=== PATIENT | male | born 1980 | race African-American/Black ===

== ENCOUNTER 2017-07-26 18:17 | Emergency (ER) | payer OTHER ==
[2017-07-26] MEDS ORDERED: NS 0.9% 1000 ML* 1,000 ML IV ONE ×2 (18:20→19:46)
[2017-07-26] MEDS ORDERED: LORazepam INJ* 2 MG/ML 1 ML VIAL IV PUSH ONE (18:20)
--- OUTSIDE RECORDS SUMMARY | 2017-07-26 18:28 | XMS REPORT ---
:1980 External Reference #:[id number] Author Organization [employer] Address [address] [facility] [address] [place] [address] Phone [phone] Care Team Providers Name Role Phone Humberto Villa MD Primary Care Physician Unavailable Payers Type Date Identification Numbers Payment Provider Subscriber Commercial Policy Number: [id number] Gregg Ho [place] [employer] Number: [id number] [address] PayID: [id number] [place] [address] Problems Date Description Provider Status Onset: 05/20/2017 Candidiasis Humberto Villa M.D. Active Onset: 05/20/2017 Tobacco user Humberto Villa M.D. Active Onset: 11/05/2016 Insomnia Humberto Villa M.D. Active Onset: 11/05/2016 Gastroesophageal reflux disease Humberto Villa M.D. Active Onset: 11/05/2016 Hemorrhoids without complication Humberto Villa M.D. Active Social History Type Date Description Comments Marital Status Single Lives With Grandmother Occupation Unemployed Cigarette Use Patient is a current cigarette smoker, smokes every day ETOH Use Consumed liquor 7 times per week in the past Smoking Patient is a current smoker, Light smoker-5-6 cigarettes smokes every day a day Recreational Drug Use Former Drug User Smoking Light tobacco smoker (10 or fewer cigarettes/day) General Hx Text Allergies, Adverse Reactions, Alerts Date Description Reaction Status Severity Comments 01/08/2015 NKDA active Medications Medication Date Status Form Strength Qnty SIG Indications Ordering Provider Omeprazole 06/[address] 20mg 30cap 1 by mouth K21.9 s every day 1 Pachikara hour before , MJonelDJonel breakfast Hydroxyzine HCL 05/20 Active Tablets 25mg 60tab 1-2 tablets G47.00 s by mouth hs Catrachita Villa Clotrimazole 05/20 Active Cream 1% 90gm apply twice B37.9 daily Catrachita Villa Trazodone HCL Active Tablets 50mg 30tab 1 tablet at s bedtime as Allen needed Catrachita Proctosol HC 06/07 Hx Cream 2.5% 28.35 apply 0gm before and Pachikara after Catrachita phillips Anusol-HC 05/20 Hx Suppository 25mg 12uni once daily K64.8 ts after bm Catrachita Villa Anucort-HC 11/05 Hx Suppository 25mg 12uni apply daily K64.9 ts after first Pachika - Catrachita phillips 11/05 Proctosol HC 11/05 Hx Cream 2.5% 28.35 apply 0gm before and Pachikara after Catrachita phillips Omeprazole 08/[address] 20mg 30cap 1 by mouth K21.9 s once daily Catrachita Villa Hydrocortisone 03/17 Hx Suppository 30mg 48uni 1 supposity K62.5 ts per rectom ROBERTO Wiggins - twice per 11/05 day needed for bleeding hemorroids Bupropion HCL 02/10 Hx Tablets ER 200mg 60tab take 1 F33.2 Edenilson ER (SR) 12HR s tablet by ROBERTO Wiggins - mouth in 11/05 the and at dinner. Wellbutrin SR 01/22 Hx Tablets ER 150mg 60tab take 1 F33.2 12HR s tablet by ROBERTO Wiggins - mouth in 02/10 the and at noon. Start with just one tab for first 3 days. Cipro 10/30 Hx Tablets 500mg 14tab 1 tab by D72.829 s mouth twice ROBERTO Wiggins - a day 7 Proair HFA 01/10 Hx Aerosol 108(90Bas 1unit inhale 2 D72.829 e) s puffs by ROBERTO Wiggins - mcg/Act mouth every 11/05 4 hours as needed Ketoconazole 01/08 Hx Cream 2% 1unit apply once B35.3 s daily to ROBERTO Wiggins - affected 11/05 areas x two weeks. Nicorette 01/08 Hx Lozenges 2mg 81uni use 1 F17.210 ts lozenger by ROBERTO Wiggins - mouth as 01/08 needed for craving may use one every 15 min Erythromycin 01/08 Hx Ointment 5mg/GM 1unit 1/2 inch to H10.33 s each eye 4 Rosalie [employer] - times daily 02/10 until redness is gone. Nicorette 01/08 Hx Lozenges 4mg 81uni 1 lozenger F17.210 ts every 1/2 Rosalie [employer]EL[employer] - hour as 02/10 needed for cravings Medications Administered in Office Medication Date Status Form Strength Qnty SIG Indications Ordering Provider PPD Administered Injection Ke Nelson [employer] PPD Administered Injection Nurse Visit 6 C Vital Signs Date Vital Result Comment 06/27/2017 Height 67 inches 5'7" Weight 200.00 lb BP Systolic 72 mmHg BP Systolic Sitting 160 mmHg BP Diastolic Sitting 90 mmHg Respiratory Rate 18 /min Body Temperature 97.7 F BMI (Body Mass Index) 31.3 kg/m2 06/23/2017 Weight 200.00 lb Heart Rate 81 /min BP Systolic 124 mmHg BP Diastolic 70 mmHg Body Temperature 97.7 F O2 % BldC Oximetry 96 % 05/20/2017 Height 67 inches 5'7" Weight 193.50 lb Heart Rate 74 /min BP Systolic Sitting 120 mmHg BP Diastolic Sitting 72 mmHg O2 % BldC Oximetry 97 % BMI (Body Mass Index) 30.3 kg/m2 11/05/2016 Height 67 inches 5'7" Weight 193.00 lb Heart Rate 91 /min BP Systolic 142 mmHg BP Diastolic 86 mmHg Body Temperature 97.7 F O2 % BldC Oximetry 96 % BMI (Body Mass Index) 30.2 kg/m2 08/04/2015 Height 67 inches 5'7" Weight 207.00 lb Heart Rate 90 /min BP Systolic Sitting 128 mmHg BP Diastolic Sitting 84 mmHg Respiratory Rate 15 /min Body Temperature 98.0 F O2 % BldC Oximetry 98 % BMI (Body Mass Index) 32.4 kg/m2 03/17/2015 Height 67 inches 5'7" Weight 206.00 lb Heart Rate 81 /min BP Systolic 128 mmHg BP Diastolic 78 mmHg Body Temperature 98.0 F O2 % BldC Oximetry 97 % BMI (Body Mass Index) 32.3 kg/m2 02/10/2015 Weight 209.00 lb Heart Rate 88 /min BP Systolic Sitting 131 mmHg BP Diastolic Sitting 79 mmHg Body Temperature 97.9 F 01/22/2015 Height 67 inches 5'7" Weight 197.00 lb Heart Rate 72 /min BP Systolic 110 mmHg BP Diastolic 78 mmHg Body Temperature 98.2 F O2 % BldC Oximetry 98 % BMI (Body Mass Index) 30.9 kg/m2 01/10/2015 Weight 199.00 lb Heart Rate 97 /min BP Systolic Sitting 134 mmHg BP Diastolic Sitting 78 mmHg Body Temperature 97.4 F 01/08/2015 Height 67 inches 5'7" Weight 200.00 lb Heart Rate 100 /min BP Systolic 110 mmHg BP Diastolic 68 mmHg Body Temperature 98.7 F O2 % BldC Oximetry 98 % BMI (Body Mass Index) 31.3 kg/m2 Results Test Date Test Result H/L Range Note CBC Auto Diff 03/17/2015 White Blood Count 12.3 10^3/uL High 3.5-10.8 Red Blood Count 5.63 10^6/uL High 4.0-5.4 Hemoglobin 15.3 g/dL 14.0-18.0 Hematocrit 44 % 42-52 Mean Corpuscular Volume 79 fL Low 80-94 Mean Corpuscular Hemoglobin 27 pg 27-31 Mean Corpuscular HGB Conc 35 g/dL 31-36 Red Cell Distribution Width 14 % 10.5-15 Platelet Count 243 10^3/uL 150-450 Mean Platelet Volume 9 um3 7.4-10.4 Abs Neutrophils 7.7 10^3/uL 1.5-7.7 Abs Lymphocytes 3.3 10^3/uL 1.0-4.8 Abs Monocytes 0.9 10^3/uL High 0-0.8 Abs Eosinophils 0.3 10^3/uL 0-0.6 Abs Basophils 0.1 10^3/uL 0-0.2 Abs Nucleated RBC 0.02 10^3/uL Granulocyte % 62.5 % 38-83 Lymphocyte % 27.1 % 25-47 Monocyte % 7.3 % 1-9 Eosinophil % 2.6 % 0-6 Basophil % 0.5 % 0-2 Nucleated Red Blood Cells % 0.1 Laboratory test finding 03/17/2015 Alt (SGPT) 21 U/L 7-52 Syphilis Screen 03/17/2015 Pediatric/Maternal NO Syphilis IgG Nonreactive Nonreactive 1 RPR TNP Nonreactive RPR Titer TNP Urinalysis Profile 03/17/2015 Urine Color Yellow Urine Appearance Cloudy Urine Specific Aubrey 1.021 1.010-1.030 Urine pH 5.0 5-9 Urine Urobilinogen Negative Negative Urine Ketones Negative Negative Urine Protein Negative Negative Urine Leukocytes Negative Negative Urine Blood Negative Negative Urine Nitrite Negative Negative Urine Bilirubin Negative Negative Urine Glucose Negative Negative Ua Routine 03/17/2015 Ua Specific Aubrey 1.015 Ua PH 6 Ua Color yellow Ua Appera clear Ua WBC negative Ua Protein negative Ua Glucose normal Ua Ketones negative Ua Bilirubin negative Ua Urobilinogen normal Ua Nitrite negative Ua Occult Blood negative Laboratory test 01/12/2015 Alcohol 95 mg/dL High <10 finding Urine Drug SCR ED 01/12/2015 Amphetamine Ur None Detected None Detect & Pain Clinic Screen Barbiturates Urine Screen None Detected None Detect Benzodiazepine Urine Screen None Detected None Detect Urine Cannabinoids Screen None Detected None Detect Urine Cocaine Screen None Detected None Detect Urine Opiates Screen None Detected None Detect Urine Phencyclidine Screen None Detected None Detect 2 CBC Auto Diff 01/10/2015 White Blood Count 16.7 10^3/uL High 4.8-10.8 Red Blood Count 5.44 10^6/uL High 4.0-5.4 Hemoglobin 15.1 g/dL 14.0-18.0 Hematocrit 43 % 42-52 Mean Corpuscular Volume 79 fL Low 80-94 Mean Corpuscular Hemoglobin 28 pg 27-31 Mean Corpuscular HGB Conc 35 g/dL 31-36 Red Cell Distribution Width 14 % 10.5-15 Platelet Count 300 10^3/uL 150-450 Mean Platelet Volume 8 um3 7.4-10.4 Abs Neutrophils 9.9 10^3/uL High 1.5-7.7 Abs Lymphocytes 4.7 10^3/uL 1.0-4.8 Abs Monocytes 1.4 10^3/uL High 0-0.8 Abs Eosinophils 0.6 10^3/uL 0-0.6 Abs Basophils 0.1 10^3/uL 0-0.2 Abs Nucleated RBC 0.02 10^3/uL Granulocyte % 59.5 % 38-83 Lymphocyte % 28.0 % 25-47 Monocyte % 8.3 % 1-9 Eosinophil % 3.7 % 0-6 Basophil % 0.5 % 0-2 Nucleated Red Blood Cells % 0.1 Laboratory test finding 01/10/2015 Erythrocyte Sed Rate 15 mm/Hr High 0- 14 CBC Auto Diff 01/08/2015 White Blood Count 19.9 10^3/uL High 4.8-10.8 Red Blood Count 5.02 10^6/uL 4.0-5.4 Hemoglobin 13.7 g/dL Low 14.0-18.0 Hematocrit 40 % Low 42-52 Mean Corpuscular Volume 80 fL 80-94 Mean Corpuscular Hemoglobin 27 pg 27-31 Mean Corpuscular HGB Conc 34 g/dL 31-36 Red Cell Distribution Width 14 % 10.5-15 Platelet Count 257 10^3/uL 150-450 Mean Platelet Volume 8 um3 7.4-10.4 Abs Neutrophils 14.8 10^3/uL High 1.5-7.7 Abs Lymphocytes 3.2 10^3/uL 1.0-4.8 Abs Monocytes 1.4 10^3/uL High 0-0.8 Abs Eosinophils 0.3 10^3/uL 0-0.6 Abs Basophils 0.1 10^3/uL 0-0.2 Abs Nucleated RBC 0 10^3/uL Granulocyte % 74.5 % 38-83 Lymphocyte % 16.3 % Low 25-47 Monocyte % 7.3 % 1-9 Eosinophil % 1.3 % 0-6 Basophil % 0.6 % 0-2 Nucleated Red Blood Cells % 0 Comp Metabolic Panel 01/08/2015 Sodium 135 mmol/L 133-145 Potassium 3.8 mmol/L 3.5-5.0 Chloride 103 mmol/L 101-111 Co2 Carbon Dioxide 27 mmol/L 22-32 Anion Gap 5 mmol/L 2-11 Glucose 97 mg/dL 70-100 Blood Urea Nitrogen 15 mg/dL 6-24 Creatinine 0.89 mg/dL 0.67-1.17 BUN/Creatinine Ratio 16.9 8-20 Calcium 9.4 mg/dL 8.6-10.3 Total Protein 6.9 g/dL 6.4-8.9 Albumin 4.2 g/dL 3.2-5.2 Globulin 2.7 g/dL 2-4 Albumin/Globulin Ratio 1.6 1-3 Total Bilirubin 0.50 mg/dL 0.2-1.0 Alkaline Phosphatase 62 U/L 34-104 Alt 39 U/L 7-52 Ast 53 U/L High 13-39 Egfr Non- 97.8 >60 Egfr 125.8 >60 3 1 Warning: A positive result is not useful for establishing a diagnosis of syphilis. In most situations, such a result may reflect a prior treated infection; a negative result can exclude a diagnosis of syphilis except for incubating or early primary disease. 2 The urine specimen was tested at the listed cutoffs: Drug class test level (ng/mL) Amphetamines 500 Barbituates 200 Benzodiazepine metabolites 200 Cocaine metabolites 150 Cannabinoids 50 Opiates 300 Pcp 25 This is a screening procedure. Positive results are not confirmed. Specimen was received without chain of custody. Results should be used for medical purposes only. 3 Because ethnic data is not always readily available, this report includes an eGFR for both -Americans and non- Americans. The National Kidney Disease Education Program (NKDEP) does not endorse the use of the MDRD equation for patients that are not between the ages of 18 and 70, are , have extremes of body size, muscle mass, or nutritional status, or are non- or non-. According to the National Kidney Foundation, irrespective of diagnosis, the stage of the disease is based on the level of kidney function: Stage Description GFR(mL/min/1.73 m(2)) 1 Kidney damage with normal or decreased GFR 90 2 Kidney damage with mild decrease in GFR 60-89 3 Moderate decrease in GFR 30-59 4 Severe decrease in GFR 15-29 5 Kidney failure <15 (or dialysis) Procedures Date CPT Code Description Status 06/27/2017 11233 Anoscopy Completed Encounters Type Date Location Provider CPT E/M Dx Office Visit 05/20/2017 [facility] Humberto Villa, [address] F17.210 9:00a [facility] - [place] [address] Domínguez G47.00 B37.9 K64.8 Office Visit 11/05/2016 8:00a [facility] Humberto Villa M.D. [address] K64.9 Medicine - [address] K21.9 G47.00 Office Visit 08/04/2015 1:40p [facility] Medicine - Leonid Ramsay, ROBERTO [address] K21.[address] [place] Office Visit 03/17/2015 2:40p [facility] Medicine - Edenilson Wiggins, [employer]OPER [address] K62.5 [place] F10.14 K64.0 Office Visit 02/10/2015 1:30p [facility] Medicine - [place] Wiggins, ROBERTO [address] F33.2 [place] Office Visit 01/22/2015 9:00a [facility] - Edenilson Wiggins, [employer] DEVELOPER [address] F33.2 [place] Office Visit 01/10/2015 2:00p [facility] - Edenilson Wiggins, [employer] DEVELOPER [address] D72.829 [place] Office Visit 01/08/2015 1:00p [facility] - Edenilson Wiggins, [employer] DEVELOPER [address] J06.9 [place] K62.5 B35.3 F17.210 H10.33 Plan of Care Future Appointment(s):08/15/2017 8:40 am - Humberto Villa M.D. at [facility] - [address]/27/2017 - Jeffery Luna MDK62.89 Other specified diseases of anus and rectumFollow up:As neededInstructions:anal hygiene according to handout Call for appointment in 6 months if no better, and we will perform an examination in the operating room
--- NOTE | 2017-07-26 18:47 | ED ---
Michael Whaley Gabriel, scribed for Jeffrey Colunga MD on 07/26/17 at 1828 . Substance Abuse/Use - HPI Summary HPI Summary: This patient is a 36 year old M presenting to [facility] after being found by the police rolling in the grass. Patient reports SOB. Patient denies HUFFMAN and CP. The patient is mildly arousalable. He states he cannot remember most of the day and that he smoked K2. He is acting bizzare and his clothes are covered in grass stains. - History Of Current Complaint Stated Complaint: OVERDOSE Time Seen by Provider: 07/26/17 18:19 Hx Obtained From: Patient, Other: - police Overdose Characteristics: Inhalation Timing Of Abuse: Binge Use Severity Initially: Moderate Severity Currently: Moderate Character: Stuporous Associated Signs And Symptoms: Other: - SOB - Allergies/Home Medications Allergies/Adverse Reactions: Allergies Allergy/AdvReac Type Severity Reaction Status Date / Time No Known Allergies Allergy Verified 12/08/12 16:32 PMH/Surg Hx/FS Hx/Imm Hx Endocrine/Hematology History: Denies: Hx Anticoagulant Therapy, Hx Diabetes, Hx Thyroid Disease Cardiovascular History: Denies: Hx Hypertension Respiratory History: Denies: Hx Asthma, Hx Chronic Obstructive Pulmonary Disease (COPD) Psychiatric History: Denies: Hx Substance Abuse - Immunization History Date of Tetanus Vaccine: unknown Date of Influenza Vaccine: unknown Infectious Disease History: Denies: Hx Hepatitis - Family History Known Family History: Negative: Seizure Disorder - Social History Lives: With Family Alcohol Use: Weekly Substance Use Type: Reports: Heroin, Marijuana Smoking Status (MU): Current Every Day Smoker Review of Systems Negative: Chest Pain Positive: Shortness Of Breath Negative: Headache All Other Systems Reviewed And Are Negative: Yes Physical Exam - Summary Physical Exam Summary: Appearance:, no pain distress, drowsy, no signs of injury Skin: warm, dry, reflects adequate perfusion Head/face: normal Eyes: EOMI, ALYSSA, pupils are dilated ENT: normal Neck: supple, non-tender Respiratory: CTA, breath sounds present Cardiovascular: tachy, pulses symmetrical Abdomen: non-tender, soft Bowel Sounds: present Musculoskeletal: normal, strength/ROM intact Neuro: normal, sensory motor intact, A&Ox3 Triage Information Reviewed: Yes Vital Signs On Initial Exam: Initial Vitals Temp Pulse Resp BP Pulse Ox 100.9 F 104 18 137/89 94 07/26/17 18:20 07/26/17 18:20 07/26/17 18:20 07/26/17 18:20 07/26/17 18:20 Vital Signs Reviewed: Yes Diagnostics - Vital Signs Vital Signs Temp Pulse Resp BP Pulse Ox 07/26/17 18:20 100.9 F 104 18 137/89 94 - Laboratory Lab Statement: Any lab studies that have been ordered have been reviewed, and results considered in the medical decision making process. Course/Dx - Course Assessment/Plan: Pt is stable he is not agitated. PA will monitor and disposition the patient. As needed Ativan order has been given to nursing for agitation. He has not required it as he presently is a little bit more sedate. - Diagnoses Provider Diagnoses: Drug use Discharge - Sign-Out/Discharge Documenting (check all that apply): Sign-Out Patient Signing out patient TO: Amy Shoemaker - Discharge Plan Condition: Guarded Referrals: Edenilson Wiggins RADIO PERFORMER [Primary Care Provider] - - Billing Disposition and Condition Condition: GUARDED The documentation as recorded by the Michael arana Gabriel accurately reflects the service I personally performed and the decisions made by me, Jeffrey Colunga MD.
[2017-07-26 19:02] LABS: ABS Basophils 0.1 10^3/ul (0-0.2); ABS Eosinophils 0.4 10^3/ul (0-0.6); ABS Monocytes 1.3 10^3/ul (0-0.8); ABS Neutrophils 10.6 10^3/ul (1.5-7.7); ABS Nucleated RBC 0 10^3/ul; Eosinophil % 2.8 % (0-6); Hematocrit 41 % (42-52); Hemoglobin 14.8 g/dl (14.0-18.0); Lymphocyte % 19.4 % (25-47); Mean Corpuscular HGB Conc 36 g/dl (31-36); Mean Corpuscular Hemoglobin 27 pg (27-31); Mean Corpuscular Volume 77 fL (80-94); Mean Platelet Volume 8.5 um3 (7.4-10.4); Nucleated Red Blood Cells % 0; Platelet Count 240 10^3/ul (150-450); Red Blood Count 5.38 10^6/ul (4.0-5.4); Red Cell Distribution Width 14 % (10.5-15); White Blood Count 15.4 10^3/ul (3.5-10.8)
[2017-07-26 19:11] LABS: INR 0.89 (0.77-1.02)
--- NOTE | 2017-07-26 19:13 | ED ---
Progress - Progress Note Progress Note: Patient signed out by Dr. Colunga pending labs and observation. Labs wbc 15. Creatinine kinase is only double. INR any DPT are normal. Creatinine is only a little bit elevated. Gave fluids and observed for 3 hours the patient is not agitated. Patient feels that want to go home. Denies any chest pain or shortness of breath. Discussed with girlfriend signs return to ED for. Patient 's girlfriend Understands agrees with plan. patient able to walk out of ED. - Results/Orders Results/Orders: Laboratory Results - last 24 hr 07/26/17 07/26/17 07/26/17 18:48 18:48 18:49 WBC 15.4 H RBC 5.38 Hgb 14.8 Hct 41 L MCV 77 L MCH 27 MCHC 36 RDW 14 Plt Count 240 MPV 8.5 Neut % (Auto) 68.5 Lymph % (Auto) 19.4 L Ellis % (Auto) 8.7 H Eos % (Auto) 2.8 Baso % (Auto) 0.6 Absolute Neuts (auto) 10.6 H Absolute Lymphs (auto) 3.0 Absolute Monos (auto) 1.3 H Absolute Eos (auto) 0.4 Absolute Basos (auto) 0.1 Absolute Nucleated RBC 0 Nucleated RBC % 0 INR (Anticoag Therapy) 0.89 APTT 27.4 Sodium 139 Potassium 3.6 Chloride 105 Carbon Dioxide 26 Anion Gap 8 BUN 18 Creatinine 1.18 H Est GFR ( Amer) 89.8 Est GFR (Non-Af Amer) 69.8 BUN/Creatinine Ratio 15.3 Glucose 141 H Calcium 9.6 Total Bilirubin 0.50 AST 43 H ALT 28 Alkaline Phosphatase 47 Total Creatine Kinase 668 H Total Protein 7.3 Albumin 4.2 Globulin 3.1 Albumin/Globulin Ratio 1.4 Serum Alcohol < 10 Re-Evaluation - Re-Evaluation First Eval Re-Evaluation Time: 20:10 Change: Improved Comment: patient is alert, has abrasion above knees that are complaining hurt. nontender patella or fibula head, full ROM knees Second Eval Re-Evaluation Time: 21:43 Change: Improved Comment: not agitation, no chest pain, no compliants, wants to go home Course/Dx - Diagnoses Provider Diagnoses: Drug use Discharge - Sign-Out/Discharge Documenting (check all that apply): Receiving Sign-Out Receiving patient FROM: Jeffrey Colunga - Discharge Plan Condition: Stable Disposition: HOME Patient Education Materials: Cannabis Abuse (ED) Referrals: Edenilson Wiggins NP [Primary Care Provider] - Additional Instructions: Follow up with primary within 3 days Return to ED if develop chest pain, agitation, or any new or worsening symptoms - Billing Disposition and Condition Condition: STABLE Disposition: HOME
[2017-07-26 19:20] LABS: EGFR Non-African American 69.8 (>60)
--- NOTE | 2017-07-26 19:34 | RAD ---
INDICATION: Trouble breathing. Drug ingestion COMPARISON: January 10, 2015 TECHNIQUE: An AP portable view obtained at 1902 hours is submitted. FINDINGS: Bones/Soft Tissues: There are no acute bony findings. Cardiomediastinal: The cardiomediastinal silhouette is normal. Lungs: There is mild interstitial prominence but there is no focal consolidation. Pleura: There are no pleural effusions. Other: None IMPRESSION: NO DEFINITIVE INFILTRATES. SUGGEST FOLLOW-UP PA AND LATERAL VIEWS IF THERE ARE PERSISTENT CHEST COMPLAINTS
[2017-07-26 22:13] VITALS: BP 99/67
== END 2017-07-26 22:15 | disposition home or self-care (01) ==
LOC: ED 18:17
DX: F19.90 Other psychoactive substance use, unspecified, uncomplicated (principal); F17.200 Nicotine dependence, unspecified, uncomplicated
CPT/HCPCS: 36415; 71045; 80053; 80320; 82550; 85025; 85610; 85730; 93005; 96361; 96374; 99284; G0480; J2060

== ENCOUNTER → 2017-12-02 14:40 | Emergency (ER) | payer SELFPAY ==
[~2017-12-02 14:40] MED LIST: LORazepam INJ* 2 MG/ML 1 ML VIAL IV PUSH ONE; NS 0.9% 1000 ML* 2,000 ML IV ONE; Ondansetron INJ* 2 MG/ML VIAL IV ONE
--- NOTE | 2017-12-02 16:44 | ED ---
GI/ HPI - HPI Summary HPI Summary: A 37 y/o M presents to ED with c/o N/V/D onset today. He denies fevers, diaphoresis, chills. He hasnt eaten today, last ate last night. PCP is Dr. Pike. Doesn't think hes been around anyone sick recently. - History of Current Complaint Chief Complaint: EDNauseaVomitDiarrh Time Seen by Provider: 12/02/17 15:24 Stated Complaint: WEAKNESS Hx Obtained From: Patient Onset/Duration: Started Hours Ago, Atraumatic, Still Present Timing: Constant Pain Intensity: 0 - out of 10 Associated Signs and Symptoms: Positive: Nausea, Vomiting, Diarrhea. Negative: Diaphoresis, Fever, Chills - Allergy/Home Medications Allergies/Adverse Reactions: Allergies Allergy/AdvReac Type Severity Reaction Status Date / Time No Known Allergies Allergy Verified 12/08/12 16:32 PMH/Surg Hx/FS Hx/Imm Hx Previously Healthy: Yes Endocrine/Hematology History: Denies: Hx Anticoagulant Therapy, Hx Diabetes, Hx Thyroid Disease Cardiovascular History: Denies: Hx Hypertension Respiratory History: Denies: Hx Asthma, Hx Chronic Obstructive Pulmonary Disease (COPD) Psychiatric History: Denies: Hx Substance Abuse - Immunization History Date of Tetanus Vaccine: unknown Date of Influenza Vaccine: unknown Immunizations Up to Date: Yes Infectious Disease History: No Infectious Disease History: Denies: Hx Hepatitis, Traveled Outside the [place] in Last 30 Days - Family History Known Family History: Negative: Seizure Disorder - Social History Occupation: Unemployed Lives: Alone Alcohol Use: Weekly Substance Use Type: Reports: Heroin, Marijuana, Synthetic Drugs Smoking Status (MU): Current Every Day Smoker Review of Systems Negative: Fever, Chills Negative: Erythema Negative: Sore Throat Negative: Chest Pain Negative: Shortness Of Breath, Cough Positive: Vomiting, Diarrhea, Nausea. Negative: Abdominal Pain Negative: dysuria, hematuria Negative: Myalgia, Edema Negative: Rash Negative: Numbness Psychological: Other - neg: dizziness All Other Systems Reviewed And Are Negative: Yes Physical Exam - Summary Physical Exam Summary: Constitutional: Well-developed, Well-nourished, Alert. (-) Distressed. Mildly tremulous. Skin: Warm, Dry HENT: Normocephalic; Atraumatic Eyes: Conjunctiva normal Neck: Musculoskeletal ROM normal neck. (-) JVD, (-) Stridor, (-) Tracheal deviation Cardio: Rhythm regular, rate normal, Heart sounds normal; Intact distal pulses; The pedal pulses are 2+ and symmetric. Radial pulses are 2+ and symmetric. (-) Murmur Pulmonary/Chest wall: Effort normal. (-) Respiratory distress, (-) Wheezes, (-) Rales Abd: Soft, (-) epigastric tenderness, (-) Distension, (-) Guarding, (-) Rebound Musculoskeletal: (-) Edema. Mildly tremulous. Lymph: (-) Cervical adenopathy Neuro: Alert, Oriented x3 Psych: Mood and affect Normal Triage Information Reviewed: Yes Vital Signs On Initial Exam: Initial Vitals Temp Pulse Resp BP Pulse Ox 97.3 F 91 17 138/83 99 12/02/17 14:42 12/02/17 14:42 12/02/17 14:42 12/02/17 14:42 12/02/17 14:42 Vital Signs Reviewed: Yes Diagnostics - Vital Signs Vital Signs Temp Pulse Resp BP Pulse Ox 12/02/17 15:17 73 13 137/74 97 12/02/17 14:42 97.3 F 91 17 138/83 99 - Laboratory Lab Statement: Any lab studies that have been ordered have been reviewed, and results considered in the medical decision making process. GIGU Course/Dx - Course Course Of Treatment: Pt eloped, left without discussion of risks. - Diagnoses Provider Diagnoses: Vomiting Discharge - Sign-Out/Discharge Documenting (check all that apply): Patient Departure - elopment - Discharge Plan Condition: Good Disposition: HOME Referrals: Edenilson Wiggins LICENSED OPTICAL DISPENSER [Primary Care Provider] - - Billing Disposition and Condition Condition: GOOD Disposition: Home - Attestation Statements Document Initiated by Scribe: Yes Documenting Scribe: Hal Mills Provider For Whom Scribe is Documenting (Include Credential): Dr. Kyle Patricia MD Scribe Attestation: Hal Whaley scribed for Dr. Kyle Patricia MD on 12/08/17 at 1057. Scribe Documentation Reviewed: Yes Provider Attestation: The documentation as recorded by the Hal arana accurately reflects the service I personally performed and the decisions made by , Dr. Kyle Patricia MD
[2017-12-02 17:00] VITALS: BP 141/87
== END | disposition home or self-care (01) ==
LOC: ED 14:40
DX: R11.2 Nausea with vomiting, unspecified (principal); R19.7 Diarrhea, unspecified
CPT/HCPCS: 99283

== ENCOUNTER 2018-08-14 11:19 | Emergency (ER) | payer OTHER ==
[2018-08-14 11:53] VITALS: BP 128/77
--- NOTE | 2018-08-14 13:14 | UC ---
Rectal Pain HPI - HPI Summary HPI Summary: 37-year-old male present with complaints of painful hemorrhoid since yesterday. States he has had issues with hemorrhoids in the past that have been well managed with hydrocortisone suppositories. Reports he noticed large, tender, swollen hemorrhoid yesterday that worsened throughout the night. Has noticed some bright red blood with wiping. Just prior to evaluation he went to the bathroom and states the hemorrhoid ruptured and pain has improved. Denies fever , chills, abdominal pain, nausea, vomiting, diarrhea, constipation, or melena. - History Of Current Complaint Chief Complaint: UCGU Stated Complaint: HEMROIDS Time Seen by Provider: 08/14/18 13:03 Hx Obtained From: Patient Pain Intensity: 8 - Allergies/Home Medications Allergies/Adverse Reactions: Allergies Allergy/AdvReac Type Severity Reaction Status Date / Time No Known Allergies Allergy Verified 08/14/18 11:53 PMH/Surg Hx/FS Hx/Imm Hx Previously Healthy: Yes - Denies significant PMH Cancer History: Other - Substance use/abuse Other History Of: Negative For: Anticoagulant Therapy - Surgical History Surgical History: None - Family History Known Family History: Positive: Non-Contributory - Social History Occupation: Unemployed Lives: With Family Alcohol Use: Occasionally Substance Use Type: Heroin, Marijuana, Synthetic Drugs Substance Use Comment - Amount & Last Used: hx of Smoking Status (MU): Current Every Day Smoker Amount Used/How Often: 1/2ppd Review of Systems All Other Systems Reviewed And Are Negative: Yes Constitutional: Negative: Fever, Chills Respiratory: Positive: Negative Cardiovascular: Positive: Negative Gastrointestinal: Positive: Other - Hemorrhoid. Negative: Abdominal Pain, Vomiting, Diarrhea, Nausea Genitourinary: Positive: Negative Musculoskeletal: Positive: Negative Neurological: Positive: Negative Is Patient Immunocompromised?: No Physical Exam - Summary Physical Exam Summary: GENERAL APPEARANCE: Well developed, well nourished, alert and cooperative, and appears to be in no acute distress. CARDIAC: Normal S1 and S2. No S3, S4 or murmurs. Rhythm is regular. There is no peripheral edema, cyanosis or pallor. Extremities are warm and well perfused. Capillary refill is less than 2 seconds. Peripheral pulses intact. LUNGS: Clear to auscultation without rales, rhonchi, wheezing or diminished breath sounds. ABDOMEN: Positive bowel sounds. Soft, nondistended, nontender. No guarding or rebound. No masses or hepatosplenomegally. RECTAL: Small external hemorrhoid noted with trace bright red blood. MUSKULOSKELETAL: ROM intact to all extremities. No joint erythema or tenderness. Normal muscular development. Normal gait. SKIN: Skin normal color, texture and turgor with no lesions or eruptions. Triage Information Reviewed: Yes Vital Signs: Initial Vital Signs Temp 98.5 F 08/14/18 11:50 Pulse 71 08/14/18 11:50 Resp 18 08/14/18 11:50 BP 128/77 08/14/18 11:50 Pulse Ox 99 08/14/18 11:50 Vital Signs Reviewed: Yes Rectal Pain Course/Dx - Course Course Of Treatment: 37-year-old male present with complaints of painful hemorrhoid since yesterday. States he has had issues with hemorrhoids in the past that have been well managed with hydrocortisone suppositories. Reports he noticed large, tender, swollen hemorrhoid yesterday that worsened throughout the night. Has noticed some bright red blood with wiping. Just prior to evaluation he went to the bathroom and states the hemorrhoid ruptured and pain has improved. Denies fever , chills, abdominal pain, nausea, vomiting, diarrhea, constipation, or melena. Afebrile. Vital signs stable. Patient was noted to have a small external hemorrhoid with a trace amount of bright red blood and otherwise unremarkable exam. Discussed with patient that I suspect that he likely had a thrombosed hemorrhoid that spontaneously ruptured. I will provide him with a prescription for hydrocortisone suppositories and recommend conservative treatment. He is to follow up with general surgery in 1 week if no improvement in his symptoms. Anticipatory guidance and warning symptoms provided. Verbalizes understanding and agrees with POC. - Differential Dx/Diagnosis Differential Diagnosis/HQI/PQRI: Hemorrhoid(s), Rectal Fissure, Rectal Polyps Provider Diagnosis: Hemorrhoids Discharge - Sign-Out/Discharge Documenting (check all that apply): Patient Departure All imaging exams completed and their final reports reviewed: No Studies - Discharge Plan Condition: Stable Disposition: HOME Prescriptions: Hydrocortisone SUPP* [Anusol Hc Supp*] 25 mg [place] BID #14 supp Patient Education Materials: Hemorrhoids (ED), High Fiber Diet (ED) Referrals: Pinky Barbosa MD [Primary Care Provider] - Brady Green MD [Medical Doctor] - 7 Days (If no improvement in symptoms.) Additional Instructions: Hemorrhoids typically resolve on their own with only conservative treatment. Use hydrocortisone 25 mg suppository twice a day. Do not use for more than 7 days. You should increase your fiber intake by either using a high-fiber diet or an over the counter fiber supplement such as Metamucil or Citrucel according to directions. Be sure to drink plenty of fluids. Avoid straining while having a bowel movement. You can also try using an over the counter stool softener such as Colace (docusate sodium) according to directions if are having hard stools. Follow up with general surgery if symptoms do not improve in 1 week. Call for an appointment. Seek immediate medical attention if you have worsening pain, there is a large amount of blood in your bowel movement, you have dark colored or black colored bowel movement, are unable to have a bowel movement, weakness, dizziness, or any worsening of symptoms. - Billing Disposition and Condition Condition: STABLE Disposition: Home
== END 2018-08-14 13:23 | disposition home or self-care (01) ==
LOC: UCEAST 11:19
DX: K64.4 Residual hemorrhoidal skin tags (principal); F17.200 Nicotine dependence, unspecified, uncomplicated
CPT/HCPCS: 99212; G0463